=== PATIENT | female | born 1980 ===

== ENCOUNTER 2021-05-18 09:05 | Observation (INO) | payer BC, MEDICAID ==
--- NOTE | 2021-05-08 12:18 | History and Physical Report ---
History of Present Illness Date of examination: 05/08/21 History of present illness: PT is a 41 yo that is having issues with menorrhagia (no metrorrhagia) and dysmenorrhea. Some pain outside of menses recently also. No dyspareunia. BC did not help in the past. PT is known to have a multifibroid uterus. Neg EMBx last year. Due to insurance issues and the pandemic, pt could not have surgery until now. Past History Past Medical History: other (anxiety) Past Surgical History: other (ovarian cystectomy, tubal ligation) Social history: smoking Medications and Allergies Allergies Allergy/AdvReac Type Severity Reaction Status Date / Time oxycodone [From Percocet] AdvReac Intermediate Vomiting Verified 05/14/21 16:16 tramadol AdvReac Intermediate Itching Verified 05/14/21 16:16 Home Medications Medication Instructions Recorded Confirmed Last Taken Type Adult Probiotic 1 cap PO DAILY 05/14/21 05/14/21 Unknown History Garlic 4 dose PO DAILY 05/14/21 05/14/21 Unknown History Myrbetriq 25 mg PO DAILY 05/14/21 05/14/21 Unknown History NexIUM 1 cap PO DAILY 05/14/21 05/14/21 Unknown History Wellbutrin 1 tab PO DAILY 05/14/21 05/14/21 Unknown History Active Meds: wellbutrin Review of Systems All systems: negative (except HPI) - Physical Exam Cardiovascular: Regular rate, No murmurs Lungs: Positive: Clear to auscultation, Normal air movement Abdomen: Positive: normal appearance, soft. Negative: tenderness Vulva: both: normal Vagina: Positive: normal moisture. Negative: discharge Cervix: Negative: lesion, discharge Uterus: Positive: enlarged (more prominent on the right.) Adnexa: both: normal Results Result Diagrams: 05/15/21 13:43 All other labs normal. Assessment and Plan - Patient Problems (1) Menorrhagia Current Visit: No Status: Acute Plan to address problem: PT is for RAH and B/L salpingectomy on 05/18/21. Patient fully consented for the surgery. Risks, benefits, and alternatives were all discussed with the patient including risk of bleeding, infection, and potential for injury. Patient understands and accepts these risks. Patient agrees to proceed with surgery. All questions were answered. H&P is up to date (05/18) - no changes. (2) Fibroid Current Visit: No Status: Acute (3) Dysmenorrhea Current Visit: No Status: Acute
[2021-05-15 13:46] LABS: Hematocrit 34.1 % (30.3-42.9); Hemoglobin 11.6 gm/dl (10.1-14.3); Mean Corpuscular HGB Conc 34 % (30-34); Mean Corpuscular Volume 89 fl (79-97); Platelet Count 337 K/mm3 (140-440); Red Blood Count 3.84 M/mm3 (3.65-5.03); Red Cell Distribution Width 16.6 % (13.2-15.2)
--- NOTE | 2021-05-15 15:02 | Anesthesia Consultation ---
Anesthesia Consult and Med Hx Date of service: 05/18/21 - Airway Anesthetic Teeth Evaluation: Good ROM Head & Neck: Adequate Mental/Hyoid Distance: Adequate Mallampati Class: Class III Intubation Access Assessment: Possibly Difficult - Pulmonary Exam CTA: Yes - Cardiac Exam Cardiac Exam: RRR - Pre-Operative Health Status ASA Pre-Surgery Classification: ASA2 Proposed Anesthetic Plan: General Nerve Block: TAP - Pulmonary Hx Smoking: Yes (1 PPD) Hx Respiratory Symptoms: No - Cardiovascular System Hx Hypertension: No Hx Heart Attack/AMI: No - Central Nervous System CVA: No Hx Psychiatric Problems: Yes (anxiety) - Gastrointestinal Hx Gastroesophageal Reflux Disease: No - Endocrine Hx Renal Disease: No Hx Liver Disease: No Hx Insulin Dependent Diabetes: No Hx Non-Insulin Dependent Diabetes: No Hx Thyroid Disease: No - Additional Comments Anesthesia Medical History Comments: No hx anesthetic complications. Reports hx collapsed lung <24hrs post op after emergent ovarian cystectomy surgery many years ago which was not attributed to anesthetic. Has had several uncomplicated surgeries since.
[~2021-05-18 09:05] MED LIST: ACETAMINOPHEN 500 MG TAB PO SCH; CELECOXIB 200 MG CAP PO NR; GABAPENTIN 300 MG CAP PO NR; MIDAZOLAM 2 MG/2 ML INJ IV NR; NEOMY 40 MG/POLYMYXIN B 200,000 UNITS/ML (GU) AMPULE IR ONE; SCOPOLAMINE TRANSDERMAL PATCH 72 HR TD NR; fentaNYL 100 MCG/2 ML INJ IV PRN
[2021-05-18] MEDS: LACTATED RINGERS 1,000 ML IV SCH (10:40)
[2021-05-18] MEDS ORDERED: dexAMETHasone 4 MG/ML VIAL ONE (10:41)
[2021-05-18] MEDS ORDERED: BUPIVACAINE/PF (0.25%) 2.5 MG/ML 30 ML VIAL INFILTRATI ONE (10:42)
[2021-05-18] MEDS ORDERED: HYDROmorphone 1 MG/1 ML INJ IV PRN (11:10)
[2021-05-18] MEDS ORDERED: ONDANSETRON 4 MG/2 ML INJ IV PRN (11:10)
--- NOTE | 2021-05-18 11:10 | Anesthesia Day of Surgery ---
Anesthesia Day of Surgery - Day of Surgery Patient Examined: Yes Patient H&P Reviewed: Yes Patient is NPO: Yes
[2021-05-18] MEDS ORDERED: propofoL 200 MG/20 ML VIAL IV ONE (11:43)
[2021-05-18] MEDS ORDERED: ROCURONIUM 50 MG/5 ML INJ IV ONE (11:43)
[2021-05-18] MEDS ORDERED: HYDROmorphone 1 MG/1 ML INJ ONE (11:43)
[2021-05-18] MEDS ORDERED: LIDOCAINE MPF (2%) 20 MG/1 ML VIAL 5 ML ONE (11:43)
[2021-05-18] MEDS ORDERED: ceFAZolin/Water 2 GM/20 ML 2 GM/20 ML SYRINGE IV ONE (11:49)
[2021-05-18] MEDS ORDERED: ceFAZolin/STERILE WATER 2 GM/20 ML SYRINGE IV NR (12:00)
[2021-05-18] MEDS ORDERED: NEOMY 40 MG/POLYMYXIN B 200,000 UNITS/ML (GU) AMPULE IR ONE (13:06)
[2021-05-18] MEDS ORDERED: SODIUM CHLORIDE 0.9% IRR 1,500 ML BOTTLE IR ONE (13:07)
[2021-05-18] MEDS ORDERED: SODIUM CHLORIDE 0.9% IRRIG SOLN 2000 ML IR ONE (13:07)
[2021-05-18] MEDS ORDERED: NEOSTIGMINE 10MG/10 ML INJ MDV ONE (14:30)
[2021-05-18] MEDS ORDERED: dexAMETHasone 20 MG/5 ML VIAL ONE (14:30)
[2021-05-18] MEDS ORDERED: ONDANSETRON 4 MG/2 ML INJ ONE (14:30)
[2021-05-18] MEDS ORDERED: GLYCOPYRROLATE 0.4 MG/2 ML INJ ONE (14:30)
--- NOTE | 2021-05-18 14:38 | Post Operative Note ---
Date of procedure: 05/18/21 Pre-op diagnosis: Menorrhagia, dysmenorrhea, fibroids Post-op diagnosis: same Findings: Patient had normal tubes and ovaries bilaterally. History of tubal ligation. Her uterus was within normal limits except for a couple myomas. There was approximately 3 to 4 cm fibroid on the left lateral side. There was a large pedunculated myoma off of the right cornua at least 5 to 6 cm in size. The rest of the general abdominal/pelvic survey was within normal limits. Procedure: Indication: 41-year-old with fibroid uterus, menorrhagia, dysmenorrhea. As a result, patient is here for scheduled robotic hysterectomy and bilateral mauricio pingectomy. Procedure: Patient was taken to the operating room and prepped and draped in the usual fashion. Attention was first turned vaginally for placement of the V care cup uterine manipulator. This was done in the usual fashion including anchoring stitches at 12:00 and 6:00 of the cervical stroma with 0 Vicryl. The large Vcare cup was chosen and the manipulator was placed successfully and without difficulty. Attention was now turned abdominally. In the left upper quadrant about 2 fingerbreadths inferior to the costal margin in the midclavicular line, an 5 mm incision was made. The 5 mm trocar was successfully placed and the placement was confirmed with the camera. Attention was now turned to the placement of the 3 robotic trocars. The 2 lower quadrant ones were about 2 cm superior and medial to the ASIS on each side. These were 8 mm ports. They were placed under direct visualization with without difficulty. The 12 mm umbilical trocar site was also placed under direct visualization successfully and without difficulty. At this point the patient was placed in steep Trendelenburg. The robot was docked to the trochars. At this point I broke scrub and proceeded to the da Jordan console. First the pelvis was assessed and findings noted above. Good ureteral peristalsis was noted bilaterally both at the beginning of the case and at the end of the case. Attention was first turned to the left adnexa where the fallopian tube was resected from its attachments using the robotic vessel sealer. This dissection was carried to the round ligament. The ovarian ligamen t was also clamped cauterized and resected with the vessel sealer. The round ligament was also clamped cauterized and cut with the vessel sealer. Good hemostasis was noted. This was then done in the exact same fashion on the right side with equal success and good hemostasis. At this point attention was turned the bladder flap which was created using EndoShears. Good hemostasis noted. The anterior colpotomy ring indentation was then identified from the V care cup. Colpotomy incision was made until the green Vcare cup was visualized. This incision was then extended bilaterally. Attention was then turned posteriorly where the posterior colpotomy ring indentation was identified and the colpotomy incision was made. The colpotomy incision posteriorly was then extended bilaterally. The posterior peritoneal flap was created at this point bilaterally. Good hemostasis noted. At this point attention was turned to the the uterine vasculature which was clamped cauterized and cut using the vessel sealer on both sides. After this was completed the colpotomy was completed at the 3:00 and 9:00 positions. At this point the colpotomy was completed 360 degrees. At this point the uterus and tubes were successfully removed vaginally without difficulty. Attention was turned to closure of the vaginal cuff which was done using 0 V-Loc in a running fashion. Vaginal cuff was closed successfully and without difficulty. At this point the pelvis was well irrigated. The abdomen was desufflated and good hemostasis was noted. Abdomen was reinsufflated. Drew was then applied to all the areas of dissection and then surgicel after that. At this point the robot was undocked from the trochars. I scrubbed back in and first inspected the vaginal cuff both visually and with palpation. Good hemostasis noted and good integrity of the cuff was noted. Laparoscopically good hemostasis still noted throughout. The 12 mm trocar was removed and that site was closed using the John He device and a 0 Vicryl. At this point the abdomen was fully desufflated. The other 3 trochars were removed and those trocar sites were closed using 4-0 Vicryl in a subcuticular fashion as well as the 12 mm site. The procedure was concluded at this point. Patient tolerated the procedure well. All instrument lap counts were correct. Patient taken to the recovery room in stable condition. Anesthesia: GETA Surgeon: JAZMINE DHILLON Agri Business Agent: VI FOSTER JR Estimated blood loss: 50-100ml Pathology: list (uterus and tubes) Specimen disposition: to lab Condition: stable Disposition: PACU
[2021-05-18] MEDS ORDERED: IBUPROFEN 800 MG TAB PO PRN ×2 (14:43→15:15)
[2021-05-18] MEDS ORDERED: ACETAMINOPHEN 325 MG TAB PO PRN ×2 (14:43→15:15)
[2021-05-18] MEDS ORDERED: ACETAMINOPHEN W/CODEINE 300-30 MG TAB PO PRN (14:52)
[2021-05-18] MEDS ORDERED: MORPHINE 4 MG/1 ML INJ IV PRN (15:15)
--- NOTE | 2021-05-18 15:47 | Post Anesthesia Evaluation ---
- Post Anesthesia Evaluation Patient Participated: Yes Airway Patent: Yes Stable Respiratory Function: Yes Nausea/Vomiting: No Temp > 96.8F: Yes Pain Manageable: Yes Adequeate Hydration: Yes Anesthesia Complications: No
[2021-05-18] MEDS: MORPHINE 2 MG/1 ML INJ IV PRN (21:45)
[2021-05-19] MEDS: LACTATED RINGERS 1,000 ML IV SCH (00:56)
[2021-05-19] MEDS: MORPHINE 2 MG/1 ML INJ IV PRN (03:54)
[2021-05-19 09:49] LABS: Hematocrit 33.8 % (30.3-42.9); Hemoglobin 10.8 gm/dl (10.1-14.3)
[2021-05-19 12:14] VITALS: BP 94/51
--- NOTE | 2021-05-19 13:23 | Discharge Summary ---
Providers - Providers Date of Admission: 05/18/21 15:15 Date of discharge: 05/19/21 Attending physician: JAZMINE DHILLON Primary care physician: GLORIA MANDEL MD Hospitalization Reason for admission: other (uterine fibroids/pelvic pain for hysterectomy, robotic) Incision: normal (4 laparoscopic incisions, well healed) Hospital course: Patient with a history of uterine fibroids and pelvic pain presenting for robotic hysterectomy now status post robotic assisted hysterectomy bilateral salpingectomy, uncomplicated. Patient meeting post operative goals on hospital day 1 and discharged in good condition. Condition at discharge: Fair Disposition: DC-01 TO HOME OR SELFCARE Plan - Discharge Medications Prescriptions: Ibuprofen [Motrin 800 MG tab] 800 mg PO Q8H PRN #30 tablet PRN Reason: Pain, Moderate (4-6) Acetaminophen/Codeine [Tylenol /Codeine # 3 tab] 1 tab PO Q4H PRN #30 tablet PRN Reason: Pain, Moderate (4-6) - Provider Discharge Summary Activity: no sex for 6 weeks, no heavy lifting 4 weeks Diet: routine Instructions: routine Additional instructions: [] Smoking cessation referral if applicable(refer to patient education folder for contact #) [] Refer to [facility] Booklet Call your doctor immediately for: * Fever > 100.5 * Heavy vaginal bleeding ( >1 pad per hour) * Severe persistent headache * Shortness of breath * Reddened, hot, painful area to leg or breast * Drainage or odor from incision. * Keep incision clean and dry at all times and follow doctor's instructions regarding bathing/showering - Follow up plan Follow up: JAZMINE DHILLON MD [Staff Physician] - 14 Days
[2021-05-19] MEDS ORDERED: MAGNESIUM HYDROXIDE (MOM) ORAL LIQD UDC ONE (14:29)
[2021-05-19] MEDS ORDERED: MAGNESIUM HYDROXIDE (MOM) ORAL LIQD UDC PO ONE (15:46)
== END 2021-05-19 15:00 | disposition home or self-care (01) ==
LOC: OR 09:05 → OB 15:15
PROVIDERS: ADMIT Obstetrics & Gynecology; ATTEND Obstetrics & Gynecology
DX: D25.9 Leiomyoma of uterus, unspecified (principal); Z20.822 Contact with and (suspected) exposure to COVID-19; N92.0 Excessive and frequent menstruation with regular cycle; F41.9 Anxiety disorder, unspecified; Z98.51 Tubal ligation status; Z79.899 Other long term (current) drug therapy; Z98.890 Other specified postprocedural states; Z90.710 Acquired absence of both cervix and uterus
CPT/HCPCS: 36415; 58573; 64450; 84703; 85014; 85018; 85027; 86850; 86900; 86901; 88307; 96374; 96375; 96376; A4217; G0378; J0690; J1100; J1170; J2250; J2270; J2405; J2704; J2710; J3010; J3490; J7120; S2900; U0003

== ENCOUNTER 2021-07-15 21:29 | Emergency (ER) | payer BC | END 2021-07-15 22:00 | disposition left against medical advice (07) | LOC: ED 21:29 | DX: G89.18 Other acute postprocedural pain (principal); Z53.21 Procedure and treatment not carried out due to patient leaving prior to being seen by health care provider ==